=== PATIENT | female | born 1960 | race Caucasian/White ===

== ENCOUNTER 2018-06-23 12:39 | Outpatient (CLI) | payer BC, SELFPAY | END 2018-06-23 12:59 | PROVIDERS: PCP Family Medicine; Visit Provider Internal Medicine Endocrinology, Diabetes & Metabolism | DX: E03.8 Other specified hypothyroidism (principal) | CPT/HCPCS: 36415; 84443 ==

== ENCOUNTER 2018-09-30 13:54 | Outpatient (CLI) | payer BC, SELFPAY ==
[2018-09-30 15:14] LABS: TSH 0.52 uIU/mL (0.358-3.74)
== END 2018-09-30 14:14 ==
PROVIDERS: PCP Family Medicine; Visit Provider Internal Medicine Endocrinology, Diabetes & Metabolism
DX: E03.8 Other specified hypothyroidism (principal)
CPT/HCPCS: 36415; 84443

== ENCOUNTER 2018-10-21 14:25 | Outpatient (CLI) | payer BC, SELFPAY ==
[2018-10-21 15:32] LABS: Calculated LDL 149; Cholesterol 263 mg/dL (50-200); HDL Cholesterol 96 mg/dL (40-60); Triglyceride 90 mg/dL (30-150)
[2018-10-21 16:17] LABS: Hemoglobin A1C 5.4 % (4.5-6.2)
== END 2018-10-21 14:45 ==
PROVIDERS: PCP Family Medicine; Visit Provider Obstetrics & Gynecology Gynecology
DX: Z00.00 Encounter for general adult medical examination without abnormal findings (principal); Z13.220 Encounter for screening for lipoid disorders; Z13.1 Encounter for screening for diabetes mellitus
CPT/HCPCS: 36415; 80061; 83721; 83036

== ENCOUNTER 2018-10-21 14:37 | Outpatient (REF) | payer BC, SELFPAY ==
--- NOTE | 2018-10-21 13:20 | PAPFT_PTH ---
PATIENT: Nicolasa Smiley LOC: [facility] U#:[id number] AGE/SX: 57/F ROOM: RE10/21/[address]: Angeles Gentile : 1960 BED: DIS: 10/21/2018 SPEC #: [id number] RECD: 10/21/18 17:47 STATUS: ANIBAL PANIAGUA #: [id number] NICOLE: 10/21/18 13:[address]: Angeles Gentile DEPT: [facility] Cytology RECD BY: Regine Kelly ENTERED: 10/21/18 17:48 SP TYPE: PAPFT TEJ DR: Adama Marsh Tissues: 1 - CX/ENDOCX FOR PAP SMEARS Procedures: PAP THIN PREP/UVM Screening HPV DNA PROBE Comments: [id number]
== END 2018-10-21 14:57 ==
LOC: LBN 14:37
PROVIDERS: PCP Family Medicine; Visit Provider Obstetrics & Gynecology Gynecology
DX: Z12.4 Encounter for screening for malignant neoplasm of cervix (principal); Z11.51 Encounter for screening for human papillomavirus (HPV)
CPT/HCPCS: 88142; 87624

== ENCOUNTER 2018-10-30 00:49 | Outpatient (CLI) | payer BC, SELFPAY ==
--- NOTE | 2018-10-30 12:00 | DI.MAMMO_ITS ---
SYMPTOM/DIAGNOSIS: SCREENING, Z12.31, ENCOUNTER FOR GENERAL ADULT MEDICAL EXAM, Z00.00 MAMMOGRAMS: Mammograms were interpreted according to the usual protocol including computer analysis with CAD system, tomosynthesis and C view imaging. The breasts are heterogeneously dense. No dominant mass or clumped microcalcification is identified in either breast. The current examination is compared with previous examinations including 10/2017 and there has been no gross interval change in appearance in comparison with the previous studies. CONCLUSION: No specific evidence of malignancy at this time. Routine screening examinations are suggested at yearly intervals due to the family history of breast carcinoma. Category 1. Breast density, Category C. MQSA ASSESSMENT OF FINDINGS: Negative. Category 1. Patient will receive a letter notifying them of these results. Bi-RADS category C. The breasts are heterogeneously dense, which may obscure small masses.
== END 2018-10-30 01:09 ==
PROVIDERS: PCP Family Medicine; Visit Provider Obstetrics & Gynecology Gynecology
DX: Z00.00 Encounter for general adult medical examination without abnormal findings (principal); Z12.31 Encounter for screening mammogram for malignant neoplasm of breast; Z80.3 Family history of malignant neoplasm of breast
CPT/HCPCS: 77063; 77067

== ENCOUNTER 2019-09-14 13:15 | Outpatient (REF) | payer BC, SELFPAY ==
[2019-09-14 16:10] LABS: HCT 40.8 % (36.0-46.0); Mean Corp. HGB Concentration 34.3 g/dL (32.0-36.0); Mean Corpuscular Hemoglobin 30.4 pg (27.0-33.0); Mean Corpuscular Volume 88.5 fL (80-95); Mean Platelet Volume 10.6 fL (8.0-11.0); Platelet Count 204 x1000/uL (130-400); RBC 4.61 m/cumm (4.00-5.20); RBC Distribution Width 12.5 % (11.7-14.6); White Blood Cell Count 5.45 k/cumm (4.4-10.8)
[2019-09-14 16:31] LABS: ALT 35 U/L (14-59); AST 26 U/L (15-37); Albumin 4.1 g/dL (3.4-5.0); Alkaline Phosphatase 82 U/L (46-116); BUN 13 mg/dL (7-18); Bilirubin, Total 0.5 mg/dL (0.2-1.0); CREATININE 0.76 mg/dL (0.55-1.02); Calcium 9.1 mg/dL (8.5-10.1); Calculated LDL 83 mg/dL (<100); Chloride 103 mmol/L (98-107); Cholesterol 184 mg/dL (<200); Glucose 87 mg/dL (74-106); HDL Cholesterol 85 mg/dL (40-60); Potassium 4.2 mmol/L (3.5-5.1); Sodium 141 mmol/L (136-145); TSH (W/Ref FT4) 0.27 uIU/mL (0.36-3.74); Triglyceride 80 mg/dL (<150)
[2019-09-14 16:44] LABS: Vitamin D 25 Total 59.5 ng/ml (30-100)
[2019-09-14 17:08] LABS: FREE T4 1.17 ng/dL (0.76-1.46)
[2019-09-15 12:50] LABS: Hepatitis C Ab w Rflx HCV PCR Negative (Negative)
== END 2019-09-14 13:35 ==
LOC: NCHCN 13:15
PROVIDERS: PCP Family Medicine; Visit Provider Family Medicine
DX: Z00.00 Encounter for general adult medical examination without abnormal findings (principal); E03.9 Hypothyroidism, unspecified; E78.5 Hyperlipidemia, unspecified; E55.9 Vitamin D deficiency, unspecified; L20.9 Atopic dermatitis, unspecified; Z11.59 Encounter for screening for other viral diseases
CPT/HCPCS: 80053; 80061; 82306; 85027; 86803; 84439; 84443

== ENCOUNTER 2019-11-09 00:17 | Outpatient (CLI) | payer BC, SELFPAY ==
--- NOTE | 2019-11-09 15:00 | DI.MAMMO_ITS ---
EXAM: MG MAMMO SCREENING CLINICAL HISTORY: screening. TECHNIQUE: Bilateral full field digital CC and MLO mammographic images were obtained with 3D tomosyn thesis and utilizing computer aided detection (CAD). COMPARISON: 2010 through 2018 FINDINGS: Masses/Architectural Distortion: None seen. Microcalcifications: No suspicious pleomorphic-type are seen. Skin Thickening/Nipple Retraction: None. IMPRESSION: 1. No significant interval change with no specific features of malignancy noted. 2. Unless there is more urgent need, annual screening mammography is recommended, as per [place] [employer] guidelines. BI-RADS Category 1: Breast Density Category D: Breast Density Category D: The mammogram demonstrates the patient's breast tissue is dense. Dense suyapa ast tissue is very common and is not abnormal but dense breast tissue can make it harder to find canc er on a mammogram. Also, dense breast tissue may increase their breast cancer risk. This information about the result of the mammogram report was provided to the patient to raise their awareness. Use th is report when you speak with the patient about their risks for breast cancer, which includes their f amily history. At that time, you may recommend for more screening tests (Ultrasound or MRI) as they m ight be useful based on their risk. A negative radiographic report should not delay biopsy if a dominant or clinically suspicious mass is present. Up to ten percent of cancers are not identified on mammography. A negative report may reinforce clinical impression. Adenosis and dense breasts may obscure an underlying neoplasm. False positive reports average 6 to 10%.
== END 2019-11-09 00:37 ==
PROVIDERS: PCP Family Medicine; Visit Provider Nurse Practitioner Women's Health
DX: Z12.31 Encounter for screening mammogram for malignant neoplasm of breast (principal)
CPT/HCPCS: 77063; 77067

== ENCOUNTER 2020-02-25 04:36 | Outpatient (CLI) | payer BC, SELFPAY ==
--- NOTE | 2020-03-11 13:35 | W.ZIOMONITOR ---
Date of service: 03/11/20 Time of Service: 13:35 14 Day Back Tender Insulation Board Referring Provider:: ruel Indications:: palps Note: This is a 2-week monitor ordered for indication of palpitations. ?The patient was in normal sinus rhythm for the majority of the recording with an average heart rate of 79 bpm. ?The patient had one episode of NSVT which lasted 7 beats. She had rare PVCs. ?There were 9 episodes of supraventricular tachycardia with the longest lasting 11 beats. There were rare PACs. ?There were no episodes of atrial fibrillation, no pauses greater than 3 seconds and no evidence of high degree heart block. ?Patient triggered events were associated with sinus rhythm and occasional isolated PVC.
--- NOTE | 2020-03-29 09:25 | W.ZIOMONITOR ---
Date of service: 03/29/20 Time of Service: 09:25 14 Day [employer] Application Developer Referring Provider:: Alexandre Denton Indications:: Palpitations Note: This is a 14-day monitor ordered for symptoms of palpitations Predominant rhythm was sinus with an average heart rate of 79. Minimum heart rate was 48, maximum 151 There were rare atrial premature beats and atrial pairs. There were 9 atrial runs the longest of which was 11 beats in length.. There were occasional ventricular ectopic beats. There was no ventricular tachycardia. The tracing labeled ventricular tachycardia with supraventricular with aberrancy There was no atrial fibrillation, no pauses greater than 3 seconds, no high-grade AV block Multiple patient symptoms were reported, corresponding to sinus rhythm, sinus tachycardia and isolated PVCs
== END 2020-02-25 04:56 ==
PROVIDERS: PCP Family Medicine; Visit Provider Family Medicine
DX: R00.2 Palpitations (principal); I47.1 Supraventricular tachycardia
CPT/HCPCS: 0296T

== ENCOUNTER 2020-09-22 20:11 | Outpatient (REF) | payer BC, SELFPAY | END 2020-09-22 20:12 | disposition home or self-care (01) | LOC: NCHCN 20:11 | PROVIDERS: PCP Family Medicine; Visit Provider Physician Assistant Medical | DX: J02.9 Acute pharyngitis, unspecified (principal) | CPT/HCPCS: 87070 ==

== ENCOUNTER 2020-09-27 14:39 | Outpatient (REF) | payer BC, SELFPAY ==
[2020-09-27 10:10] LABS: TSH (W/Ref FT4) 2.79 uIU/mL (0.36-3.74); Vitamin B12 404 pg/mL (193-986)
== END 2020-09-27 14:40 | disposition home or self-care (01) ==
LOC: NCHCN 14:39
PROVIDERS: PCP Family Medicine; Visit Provider Family Medicine
DX: R41.3 Other amnesia (principal); E03.9 Hypothyroidism, unspecified
CPT/HCPCS: 82607; 84443

== ENCOUNTER 2020-11-30 02:45 | Outpatient (CLI) | payer BC, SELFPAY ==
--- NOTE | 2020-11-30 07:45 | DI.MAMMO_ITS ---
Exam(s) MAMMO SCREENING EXAM: MAMMO SCREENING CLINICAL HISTORY: screening,Z12.39. TECHNIQUE: Bilateral full field digital CC and MLO mammographic images were obtained with 3D tomosyn thesis and utilizing computer aided detection (CAD). COMPARISON: Prior mammograms dating back to 2010, the most recent being November 2019. Patient's mother was diagnosed with breast cancer. FINDINGS: The fibroglandular tissue pattern is again noted be quite dense, this decreasing the sensitivity of t he mammogram for finding hidden underlying lesions. There are no CAD designations There are no new obvious spiculated masses nor malignant appearing microcalcification groups. There is no significant architectural distortion nor skin thickening-retraction. IMPRESSION: Dense bilateral fibroglandular tissue. No obvious radiographic evidence of malignancy. Given the density of this patient's fibroglandular tissue and significant family history (mother with breast cancer) I recommend screening bilateral breast ultrasound examination BI-RADS Category 2 - Benign Findings Breast Density - Category D - Extremely dense Breast density Category C or D implies that the patient has dense breast tissue. Dense breast tissue can make it harder to find cancer on a mammogram. Dense breast tissue is also associated with an incr eased risk of breast cancer. This information about the result of the mammogram report was provided to the patient to raise their awareness. Use this report when you speak with the patient about their risks for breast cancer, which includes their family history. At that time, you may recommend additional screening tests (Ultrasoun d or MRI) as these tests may add significant information. A negative radiographic report should not delay biopsy if a dominant or clinically suspicious mass is present. Up to ten percent of cancers are not identified on mammography. A negative report may reinforce clinical impression. Adenosis and dense breasts may obscure an underlying neoplasm. False positive reports average 6 to 10%. Patient will receive a letter notifying them of these results.
== END 2020-11-30 03:05 ==
PROVIDERS: PCP Family Medicine; Visit Provider Nurse Practitioner Women's Health
DX: Z12.31 Encounter for screening mammogram for malignant neoplasm of breast (principal); R92.8 Other abnormal and inconclusive findings on diagnostic imaging of breast
CPT/HCPCS: 77063; 77067

== ENCOUNTER 2021-01-23 00:40 | Outpatient (CLI) | payer BC, SELFPAY ==
--- NOTE | 2021-01-23 | DI.MRI_ITS ---
Exam(s) MR BRAIN WO/W EXAM: MR BRAIN WO/W CLINICAL HISTORY: WORSENING HEADACHES,R51.9,OCCIPITAL,ASSESS FOR MASS TECHNIQUE: Multiplanar multisequence MRI of the brain was performed. Both noninfused and contrast i nfused sequences were performed. IV Contrast injected was cc Dotarem. COMPARISON: No exams were available for comparison FINDINGS: CEREBRAL PARENCHYMA: No evidence of intracranial hemorrhage, mass effect nor shift of midline structu re. No extraaxial fluid collections. Ventricles are not enlarged nor shifted. There is no significant focal signal abnormality in the cerebellar hemispheres nor within the sofia, m idbrain, and thalami. There is no abnormal signal abnormality in the periventricular white matter. There are no ring enhancing lesions in the brain. There is no abnormal meningeal enhancement. No ev idence of venous sinus thrombosis. There is no evidence of cerebellar tonsillar ectopia. PITUITARY GLAND: No mass nor parasellar abnormality. No obvious abnormality in the cavernous sinuses. FLOW VOIDS: The expected flow void are noted. No evidence of obvious aneurysm nor obvious vascular ma lformation. There is no evidence of venous sinus thrombosis PARANASAL SINUSES: The visualized paranasal sinuses appear unremarkable. ORBITS: No obvious abnormal findings. IMPRESSION: 1. No significant intracranial findings on this MRI scan of the brain. 2. No abnormal enhancing intracranial finding. 3. No evidence of obvious venous sinus thrombosis. DATA REPOSITORY:
[2021-01-23 08:40] LABS: CREATININE 0.8 mg/dL (0.55-1.02)
[2021-01-23] MEDS: Normal Saline Flush 10 ML SYR IVP (08:42)
[2021-01-23] MEDS: Gadoterate meglumine 20 ML VIAL 12 ML IVP (08:43)
== END 2021-01-23 01:00 ==
PROVIDERS: PCP Family Medicine; Visit Provider Dentist General Practice
DX: R51.9 Headache, unspecified (principal); Z01.818 Encounter for other preprocedural examination; G43.101 Migraine with aura, not intractable, with status migrainosus
CPT/HCPCS: 70553; 82565

== ENCOUNTER 2021-10-11 08:12 | Outpatient (REF) | payer BC, SELFPAY ==
[2021-10-11 16:21] LABS: Calculated LDL 95 mg/dL (<100); Cholesterol 207 mg/dL (<200); Glucose 96 mg/dL (74-106); HDL Cholesterol 95 mg/dL (40-60); TSH (W/Ref FT4) 2.32 uIU/mL (0.36-3.74); Triglyceride 87 mg/dL (<150)
== END 2021-10-11 08:13 | disposition home or self-care (01) ==
LOC: NCHCN 08:12
PROVIDERS: PCP Family Medicine; Visit Provider Family Medicine
DX: E78.5 Hyperlipidemia, unspecified (principal); I65.29 Occlusion and stenosis of unspecified carotid artery; E03.9 Hypothyroidism, unspecified; Z00.00 Encounter for general adult medical examination without abnormal findings; Z13.1 Encounter for screening for diabetes mellitus
CPT/HCPCS: 80061; 82947; 84443

== ENCOUNTER 2021-12-19 12:45 | Outpatient (REF) | payer BC, SELFPAY ==
--- NOTE | 2021-12-19 11:20 | PAPFT_PTH ---
PATIENT: Nicolasa Smiley LOC: [facility] U#:[id number] AGE/SX: 61/F ROOM: RE12/19/[address]: Stephanie Higuera NP : 1960 BED: DIS: 12/19/2021 SPEC #: [id number] RECD: 12/19/21 14:43 STATUS: ANIBAL REQ #: [id number] NICOLE: 12/19/21 11:[address]: Stephanie Higuera NP DEPT: [facility] Cytology RECD BY: Pinky Almazan ENTERED: 12/19/21 14:44 SP TYPE: PAPFT OTHR DR: Alexandre Denton Tissues: 1 - CX/ENDOCX FOR PAP SMEARS Procedures: PAP THIN PREP/UVM Screening HPV DNA PROBE Comments: [id number]
== END 2021-12-19 12:46 | disposition home or self-care (01) ==
LOC: LBN 12:45
PROVIDERS: PCP Family Medicine; Visit Provider Nurse Practitioner Women's Health
DX: Z12.4 Encounter for screening for malignant neoplasm of cervix (principal); Z11.51 Encounter for screening for human papillomavirus (HPV)
CPT/HCPCS: 88142; 87624

== ENCOUNTER → 2022-01-01 02:43 | Outpatient (CLI) | payer BC, SELFPAY ==
--- NOTE | 2022-01-01 08:45 | DI.MAMMO_ITS ---
Exam(s) MAMMO SCREENING EXAM: MAMMO SCREENING CLINICAL HISTORY: screening TECHNIQUE: Bilateral full field digital CC and MLO mammographic images were obtained with 3D tomosyn thesis and utilizing computer aided detection (CAD). COMPARISON: Available for comparison. FINDINGS: Masses/Architectural Distortion: None seen. Microcalcifications: No suspicious pleomorphic-type are seen. Skin Thickening/Nipple Retraction: None. IMPRESSION: 1. No significant interval change with no specific features of malignancy noted. 2. Unless there is more urgent need, screening mammography is recommended, as per [place] [employer] guidelines. BI-RADS Category 1 - Negative Breast Density - Category D - Extremely dense Breast density category C or D implies that the patient has dense breast tissue. Dense breast tissue is very common and is not abnormal but dense breast tissue can make it harder to find cancer on a ma mmogram. Also, dense breast tissue may increase their breast cancer risk. This information about the result of the mammogram report was provided to the patient to raise their awareness. Use this report when you speak with the patient about their risks for breast cancer, which includes their family hist ory. At that time, you may recommend for more screening tests (Ultrasound or MRI) as they might be us eful based on their risk. A negative radiographic report should not delay biopsy if a dominant or clinically suspicious mass is present. Up to ten percent of cancers are not identified on mammography. A negative report may reinforce clinical impression. Adenosis and dense breasts may obscure an underlying neoplasm. False positive reports average 6 to 10%. Patient will receive a letter notifying them of these results.
== END ==
PROVIDERS: PCP Family Medicine; Visit Provider Nurse Practitioner Women's Health
DX: Z12.31 Encounter for screening mammogram for malignant neoplasm of breast (principal)
CPT/HCPCS: 77063; 77067

== ENCOUNTER 2022-03-07 17:33 | Outpatient (REF) | payer BC, SELFPAY ==
[2022-03-12 14:52] LABS: Helicobacter pylori Ag, Feces Negative (Negative)
== END 2022-03-07 17:34 | disposition home or self-care (01) ==
LOC: NCHCN 17:33
PROVIDERS: PCP Family Medicine; Visit Provider Family Medicine
DX: K30 Functional dyspepsia (principal)
CPT/HCPCS: 87338

== ENCOUNTER 2022-12-03 12:02 | Outpatient (REF) | payer BC, SELFPAY ==
[2022-12-03 15:45] LABS: TSH (W/Ref FT4) 2.25 uIU/mL (0.36-3.74)
[2022-12-03 16:55] LABS: Hemoglobin A1C 5.4 % (<5.7)
[2022-12-03 17:14] LABS: Vitamin D 25 Total 55.1 ng/mL (30-100)
== END 2022-12-03 12:03 | disposition home or self-care (01) ==
LOC: NCHCN 12:02
PROVIDERS: PCP Family Medicine; Visit Provider Family Medicine
DX: Z00.00 Encounter for general adult medical examination without abnormal findings (principal); E03.9 Hypothyroidism, unspecified; E55.9 Vitamin D deficiency, unspecified; Z13.1 Encounter for screening for diabetes mellitus
CPT/HCPCS: 82306; 83036; 84443

== ENCOUNTER → 2023-01-28 01:36 | Outpatient (CLI) | payer BC, SELFPAY ==
--- NOTE | 2023-01-28 08:35 | DI.MAMMO_ITS ---
Exam(s) MAMMO SCREENING EXAM: MAMMO SCREENING CLINICAL HISTORY: screening,z12.39. TECHNIQUE: Bilateral full field digital CC and MLO mammographic images were obtained with 3D tomosyn thesis and utilizing computer aided detection (CAD). COMPARISON: Prior mammograms were reviewed. FINDINGS: Fibroglandular tissue pattern is again noted be dense, this somewhat decreasing the sensitivity of th e mammogram for finding hidden underlying lesions. There are no new spiculated masses nor malignant appearing microcalcification groups. There is no significant architectural distortion nor skin thickening-retraction. IMPRESSION: No radiographic evidence of malignancy. BI-RADS Category 1 - Negative Breast Density - Category C - Heterogeneously dense Breast density Category C or D implies that the patient has dense breast tissue. Dense breast tissue can make it harder to find cancer on a mammogram. Dense breast tissue is also associated with an incr eased risk of breast cancer. This information about the result of the mammogram report was provided to the patient to raise their awareness. Use this report when you speak with the patient about their risks for breast cancer, which includes their family history. At that time, you may recommend additional screening tests (Ultrasoun d or MRI) as these tests may add significant information. A negative radiographic report should not delay biopsy if a dominant or clinically suspicious mass is present. Up to ten percent of cancers are not identified on mammography. A negative report may reinforce clinical impression. Adenosis and dense breasts may obscure an underlying neoplasm. False positive reports average 6 to 10%. Patient will receive a letter notifying them of these results.
== END ==
PROVIDERS: PCP Family Medicine; Visit Provider Nurse Practitioner Women's Health
DX: Z12.39 Encounter for other screening for malignant neoplasm of breast (principal)
CPT/HCPCS: 77063; 77067

== ENCOUNTER → 2023-05-09 02:18 | Outpatient (CLI) | payer BC, SELFPAY ==
--- NOTE | 2023-05-09 10:35 | DI.RAD_ITS ---
Exam(s) XR FOOT LT COMPLETE EXAM: XR FOOT LT COMPLETE CLINICAL HISTORY: LT FOOT PAIN, M79.672. TECHNIQUE: 2D digital imaging was performed of the left foot. Three images were obtained. AP, obli que and lateral views were obtained. COMPARISON: No exams were available for comparison FINDINGS: BONES: No acute fracture is present. No bony destructive lesion is seen. There is an enthesophyte at the posterior calcaneus. JOINTS: No dislocation present. The joint spaces are well maintained. SOFT TISSUE: Normal. IMPRESSION: No acute abnormality. DATA REPOSITORY: RADIATION DOSE DELIVERED:
== END ==
PROVIDERS: PCP Family Medicine; Visit Provider Family Medicine
DX: M79.672 Pain in left foot (principal)
CPT/HCPCS: 73630

== ENCOUNTER 2023-12-12 12:16 | Outpatient (CLI) | payer BC, SELFPAY ==
[2023-12-12 14:07] LABS: HCT 43.4 % (36.0-46.0); HGB 14.7 g/dL (11.2-15.7); MCH 30.5 pg (27.0-33.0); MCHC 33.9 % (32.0-36.0); MCV 90 fL (80-95); MPV 9.6 fL (8.0-11.0); Platelet Count 167 10^3/uL (130-400); RBC 4.82 10^6/uL (3.93-5.22); RDW 12.5 % (11.7-14.6); RDW-SD 41.1 fL; WBC 4.96 10^3/uL (4.4-10.8)
[2023-12-12 14:40] LABS: BUN 13 mg/dL (7-18); CREATININE 0.8 mg/dL (0.55-1.02); Calcium 9.5 mg/dL (8.5-10.1); Chloride 105 mmol/L (98-107); Estimated GFR 81.72 (mL/min/1.73m2); Glucose 94 mg/dL (74-106); Potassium 3.7 mmol/L (3.5-5.1); Sodium 142 mmol/L (136-145); TSH (W/Ref FT4) 1.91 uIU/mL (0.36-3.74); Vitamin D 25 Total 56.7 ng/mL (30-100)
[2023-12-12 16:37] LABS: FREE T4 0.92 ng/dL (0.76-1.46)
[2023-12-12 16:41] LABS: Lab Add On Test DONE
[2023-12-13 18:14] LABS: T3,Free 3.8 pg/mL (2.8-5.3)
== END 2023-12-12 12:17 | disposition home or self-care (01) ==
PROVIDERS: PCP Student in an Organized Health Care Education/Training Program; Visit Provider Student in an Organized Health Care Education/Training Program
DX: R68.89 Other general symptoms and signs (principal); R53.83 Other fatigue; G43.909 Migraine, unspecified, not intractable, without status migrainosus; Z87.440 Personal history of urinary (tract) infections; K30 Functional dyspepsia; Z91.89 Other specified personal risk factors, not elsewhere classified; Z13.0 Encounter for screening for diseases of the blood and blood-forming organs and certain disorders involving the immune mechanism; J45.909 Unspecified asthma, uncomplicated; K90.9 Intestinal malabsorption, unspecified; E55.9 Vitamin D deficiency, unspecified; Z78.0 Asymptomatic menopausal state; I10 Essential (primary) hypertension; E04.9 Nontoxic goiter, unspecified; E04.2 Nontoxic multinodular goiter; I83.93 Asymptomatic varicose veins of bilateral lower extremities; I87.2 Venous insufficiency (chronic) (peripheral); R22.1 Localized swelling, mass and lump, neck; E06.9 Thyroiditis, unspecified
CPT/HCPCS: 36415; 80048; 82306; 85027; 84439; 84443; 84481; 87086

== ENCOUNTER 2024-01-07 11:34 | Outpatient (REF) | payer BC, SELFPAY ==
--- NOTE | 2024-01-07 11:15 | PAPFT_PTH ---
PATIENT: Nicolasa Smiley LOC: [facility] U#:[id number] AGE/SX: 63/F ROOM: RE01/07/[address]: Stephanie Higuera NP : 1960 BED: DIS: 01/07/2024 SPEC #: [id number] RECD: 01/07/24 12:47 STATUS: ANIBAL RESally #: [id number] NICOLE: 01/07/24 11:[address]: Stephanie Higeura NP DEPT: [facility] Cytology RECD BY: Regine Kelly ENTERED: 01/07/24 12:47 SP TYPE: PAPFT OTHR DR: Wendie Schmidt, DO Tissues: 1 - CX/ENDOCX FOR PAP SMEARS Procedures: PAP THIN PREP/UVM Screening HPV DNA PROBE Comments: [id number] (HPV 16 & 18/45)
== END 2024-01-07 11:35 | disposition home or self-care (01) ==
LOC: LBN 11:34
PROVIDERS: PCP Student in an Organized Health Care Education/Training Program; Visit Provider Nurse Practitioner Women's Health
DX: Z01.419 Encounter for gynecological examination (general) (routine) without abnormal findings (principal); N81.10 Cystocele, unspecified; Z12.4 Encounter for screening for malignant neoplasm of cervix
CPT/HCPCS: 88142; 87624

== ENCOUNTER 2024-01-30 02:27 | Outpatient (CLI) | payer BC, SELFPAY ==
--- NOTE | 2024-01-30 06:15 | DI.MAMMO_ITS ---
Exam(s) MAMMO SCREENING EXAM: MAMMO SCREENING CLINICAL HISTORY: screening,z12.39 TECHNIQUE: Bilateral full field digital CC and MLO mammographic images were obtained with 3D tomosyn thesis and utilizing computer aided detection (CAD). COMPARISON: Available for comparison. FINDINGS: Masses/Architectural Distortion: None seen. Microcalcifications: No suspicious pleomorphic-type are seen. Skin Thickening/Nipple Retraction: None. IMPRESSION: 1. No significant interval change with no specific features of malignancy noted. 2. Unless there is more urgent need, screening mammography is recommended, as per [place] [employer] guidelines. BI-RADS Category 1 - Negative Breast Density - Category D - Extremely dense Breast density category C or D implies that the patient has dense breast tissue. Dense breast tissue is very common and is not abnormal but dense breast tissue can make it harder to find cancer on a ma mmogram. Also, dense breast tissue may increase their breast cancer risk. This information about the result of the mammogram report was provided to the patient to raise their awareness. Use this report when you speak with the patient about their risks for breast cancer, which includes their family hist ory. At that time, you may recommend for more screening tests (Ultrasound or MRI) as they might be us eful based on their risk. A negative radiographic report should not delay biopsy if a dominant or clinically suspicious mass is present. Up to ten percent of cancers are not identified on mammography. A negative report may reinforce clinical impression. Adenosis and dense breasts may obscure an underlying neoplasm. False positive reports average 6 to 10%. Patient will receive a letter notifying them of these results.
== END 2024-01-30 02:47 ==
LOC: DI 02:28
PROVIDERS: PCP Student in an Organized Health Care Education/Training Program; Visit Provider Student in an Organized Health Care Education/Training Program
DX: Z12.31 Encounter for screening mammogram for malignant neoplasm of breast (principal)
CPT/HCPCS: 77063; 77067

== ENCOUNTER 2024-03-09 11:13 | Day surgery (SDC) | payer BC, SELFPAY ==
--- NOTE | 2024-03-06 13:25 | BOWEL_PTH ---
PATIENT: Nicolasa Smiley LOC: [facility] U#:[id number] AGE/SX: 63/F ROOM: RE03/09/[address]: J Carlos Hanson MD : 1960 BED: DIS: 03/09/2024 SPEC #: [id number] RECD: 03/09/24 15:35 STATUS: ANIBAL RE #: [id number] NICOLE: 03/06/24 13:[address]: J Carlos Hanson DEPT: Surgical Specimen RECD BY: Regine Kelly ENTERED: 03/09/24 15:36 SP TYPE: Bowel OTHR DR: Wendie Schmidt DO Tissues: 1 - BIOPSY BOWEL Procedures: GROSS AND MICRO LEVEL 4 Comments: [id number]
--- NOTE | 2024-03-08 15:28 | W.PM.DSUDISC ---
Date of service: 03/09/24 Time of Service: 13:42 Discharge Plan Disposition Patient Disposition: Home Condition: Good Discharge Details Reason For Visit: screening colonoscopy Attending Provider: J Carlos Hanson Primary Care Provider: Wendie Schmidt Home Meds and New Rx's Prescriptions: Continued Dupixent Pen 300 mg/2 mL pen injector 300 mg subcut Q2W Ubrelvy 100 mg tablet 100 mg PO ONCE Rx Instructions: as a single dose; may repeat once in >=2 hours after first dose if needed lorazepam 0.5 mg tablet 1 mg PO PRN Qty: 6 1RF Rx Instructions: take 1 tab prior to flying and 2nd in-flight (March 2024 flight planned) levothyroxine 25 mcg tablet 50 mcg PO DAILY Qty: 90 3RF sertraline 25 mg tablet 25 mg PO DAILY Qty: 90 3RF simvastatin 20 mg tablet 20 mg PO DAILY Qty: 90 3RF coQ10 (ubiquinol) 100 mg capsule 100 mg PO DAILY magnesium oxide-Mg AA chelate 300 mg capsule 1 cap PO DAILY Discontinued bisacodyl [Dulcolax (bisacodyl)] 5 mg tablet,delayed release (DR/EC) 5 mg PO ONCE Qty: 4 0RF Rx Instructions: Take per colonoscopy instructions provided by ordering providers office polyethylene glycol 3350 17 gram/dose powder 17 g PO ONCE Qty: 238 0RF Rx Instructions: Take per colonoscopy instructions provided by ordering providers office Discharge Instructions Instructions: Colon polyps, Diverticulosis Additional Instructions: Nicolasa, was pleasure meeting you today, and I hope you are comfortable during the procedure. Everything went very smoothly. I did find and remove 1 small portion of tissue, which may be a polyp. However, to be completely honest, this is extremely small, and it may in fact just be normal tissue. Regardless, I will send it off for testing as polyps, and different varieties, and the type of polyp can influence the timing of the patient's next colonoscopy. Incidentally, he also have a little bit of diverticulosis. Diverticula are little weak spots in the muscular part of the colon wall. This causes the inside lining to pooch outwards creating little pockets or pouches. On some occasions, these can get infected or inflamed. If that happens, patients typically experience quite a bit of pain, usually on the left side of their abdomen or down across the middle. We refer to these flareups as episodes of diverticulitis. Hopefully, years will never bother you. I did attach a little bit of information here about colon and rectal polyps, as well as diverticulosis. The results from the pathology report usually take a week or 2, but once the office has those, we will be in touch with recommendations for your next colonoscopy. If you need anything or have any questions in the meantime, please do not hesitate to ask. 1. If tolerated, consume a soft, low fiber diet for 1-2 days. 2[address] Do not drive, drink alcohol, operate machinery, make critical decisions, or do activities that require coordination or balance for 24 hours. 3. Because air was put into your colon during the procedure, expelling air from your rectum (passing gas or farting) is normal. 4. You may not have a bowel movement for 1-3 days because of the colonoscopy prep. This is normal. 5. Go directly to the emergency room if you notice any of the following: Develop chills (warm to touch), or if you have a thermometer and your temperature is above 101 Difficulty breathing or difficultly swallowing Persistent vomiting Severe abdominal pain, other than gas cramps Severe chest pain Black, tarry stools Any bleeding ? exceeding one tablespoon 6. Call your physician if the site where your intravenous was started becomes red, swollen, painful, and warm to touch. 7. Your physician has reviewed your pre-procedure medications. Please continue to take those medications as previously ordered. You will be given specific information/education regarding any changes to your medications before leaving. Activity:: Activity as Tolerated Diet:: As Tolerated Discharge Orders Discharge Orders: Discharge Order (Routine); Ordered 03/08/24 Ordered By: J Carlos Hanson DS: Diagnosis Discharge Diagnosis (1) Encounter for screening colonoscopy: Status: Acute Asessment and Plan: Follow-up on polypectomy results
--- NOTE | 2024-03-08 15:30 | COLE_ITS ---
Date of service: 03/09/24 Time of Service: 13:44 Colonoscopy Report Date of procedure: 03/09/24 Pre-op diagnosis general: screening colonoscopy Post-op diagnosis procedure note: other (Colon polyp, diverticulosis) Procedure: colonoscopy with polypectomy Surgeon: J Carlos Hanson Anesthesia Type: General:No Airway Estimated blood loss (mL): 5 Pathology: other (Less than 0.25 cm colon polyp at 25 cm) Complications: None Disposition: same day Indications: Nicolasa is a 63 year old woman who needs a screening colonoscopy Prep: Miralax/Dulcolax Procedure Start Time: :04 Procedure End Time: : Retraction Time: 14 Findings: Less than 0.25 cm colon polyp at 25 cm; sigmoid diverticulosis Procedure Description: After the induction of anesthesia, and with the patient in left lateral decubitus position, I began by performing an external anorectal exam.? Perineum and skin were normal, as was the anal verge.? T there are some perianal skin tags consistent with old hemorrhoids.? Next, I performed a digital rectal exam.? I did not appreciate any abnormal findings.? Next, I advanced a colonoscope into the rectal vault.? I performed retroflexion.? This appeared normal.? Using insufflation, I then advanced the colonoscope beyond the rectal folds and into the sigmoid colon before advancing towards the cecum.? There was some sigmoid diverticulosis.? The scope was noted to be in the cecum by identification of the ileocecal valve and appendiceal orifice.? I then began withdrawing the colonoscope using repeated irrigation as necessary for full evaluation of the colonic mucosa. ?Once the scope was withdrawn to the level of the rectum, great care was taken to examine portions of the rectal folds.? In the upper portion of the rectal vault was a 0.25 cm polyp. This was removed with cold forcep polypectomy with minimal bleeding. Finally, the scope was withdrawn and the patient was brought to the same-day surgery recovery unit as the anesthetic wore off. ?The findings and instructions were shared with the patient prior to discharge. [place] Bowel Prep [place] Bowel Prep Right Colon: 2 Transverse Colon: 3 Total Score: 5
[2024-03-09 11:41] VITALS: BP 116/59; PULSE 79; RESP 18; TEMP 36.2; O2SAT 100
--- NOTE | 2024-03-09 12:06 | W.ANESPRE ---
General Info Date of Service Date Performed: 03/09/24 Height: 5 ft 8 in Weight: 55.9 kg Body Mass Index (BMI): 18.7 Surgical Procedure: Operation Date: 03/09/24 12:35 Proposed Procedure Side Surgeon chica Hanson MD Meds Allergies and Home Medications Allergies Allergy/AdvReac Type Severity Reaction Status Date / Time Latex, Natural Rubber Allergy Other (See Verified 03/09/24 11:39 Comment) No Known Drug Allergies Allergy Other (See Verified 03/09/24 11:39 Comment) Home Medication ?Medication ?Instructions ?Recorded dupilumab 300 mg/2 mL subcutaneous 300 mg subcut Q2W 11/18/23 pen injector (Dupixent) ubrogepant 100 mg tablet (Ubrelvy) 100 mg PO ONCE 11/19/23 levothyroxine 25 mcg tablet 50 mcg (2 x 25 mcg) PO DAILY #90 12/05/23 tabs sertraline 25 mg tablet 25 mg PO DAILY #90 tabs 12/05/23 simvastatin 20 mg tablet 20 mg PO DAILY #90 tabs 12/05/23 lorazepam 0.5 mg tablet 1 mg (2 x 0.5 mg) PO PRN 12/06/23 anticipatory anxiety, w/ long flights #6 tab-caps coQ10 (ubiquinol) 100 mg capsule 100 mg PO DAILY 03/06/24 magnesium oxide-magnesium amino 1 cap PO DAILY 03/06/24 acid chelate 300 mg capsule Current Visit Medications: Current Medications Generic Name Dose Route Start Last Admin Trade Name Freq PRN Reason Stop Dose Admin Ringer's Solution 1,000 mls @ 80 mls/hr 03/09/24 06:00 IV 03/09/24 23:59 INFUSION COLT IV Miscellaneous Supplies 1 each 03/09/24 06:00 Iv Access IV 03/09/24 23:59 DIRECTED COLT Ondansetron HCl 4 mg 03/08/24 15:31 Ondansetron 4 Mg/2 Ml Vial IVP 04/07/24 15:30 Q4H PRN PRN Nausea / Vomiting Sodium Chloride 0 ml 03/09/24 06:00 Normal Saline Flush 10 Ml Syr IV 03/09/24 23:59 PRN PRN Sodium Chloride 0 ml 03/09/24 06:00 Normal Saline 10 Ml Vial IJ 03/09/24 23:59 DIRECTED PRN Sterile Water 0 ml 03/09/24 06:00 Water,Injection,Sterile 10 Ml Vial IJ 03/09/24 23:59 DIRECTED PRN PFSH Active Problems Active Problems: Problem Status Onset Code Encounter for screening colonoscopy Acute Z12.11 Preoperative exam for gynecologic surgery Acute Z01.818 Diffuse thyroid goiter without thyrotoxicosis Acute E04.0 Irineo's thyroiditis Acute E06.3 Discoloration of skin of toe Acute L81.9 Thyroiditis Acute E06.9 Varicose veins of both lower extremities Acute I83.93 Peripheral venous insufficiency Acute I87.2 Multinodular goiter Acute E04.2 Enlarged thyroid Chronic E04.9 Anxiety with flying Acute F40.243 Hx: UTI (urinary tract infection) Acute Z87.440 Pain in both feet Acute M79.671, M79.672 Atopic dermatitis Acute L20.9 Nonulcer dyspepsia Acute K30 Carotid artery stenosis Acute I65.29 Migraine Chronic G43.909 Anxiety disorder Acute F41.9 Vitamin D deficiency Acute E55.9 Cystocele with prolapse Acute N81.4 Postmenopausal status Acute Z78.0 Medical History Medical History Impacted cerumen of right ear Blood on toilet paper Persistent cough Hyperlipidemia Benign lipomatous tumor Family history of breast cancer mother. Chest pain (06/18/16) ED eval. Neg abd CT. RI r/o. Hypothyroidism due to Irineo's thyroiditis Rash and nonspecific skin eruption Onset 12/2013. Seen by [facility] [place] derm - topical and po steroids RX. Responsive to UV light treatment. 2016 Rx with steroid inj at [facility] [place] with improvement in sx. Multinodular goiter (nontoxic) 09/11/16 each lobe ~ [id number]. benign appearing nodules 02/2017 [facility] [place] endocrinology consult recommended target TSH less than 2. No plans for surgery at this time. Lipoma of arm 1.5cm in proximity to medial epicondyle. Tobacco Smoking/Tobacco Use Status: Never Passive smoking exposure: No Second hand exposure: No Alcohol Alcohol Intake: current Alcohol intake frequency: a few times a month Substance Use Substance use: Never Substance use type: does not use Vital Signs and Lab Results Vital Signs Most Recent Vital Signs in EMR: Most Recent Vital Signs Temp Pulse Resp BP Pulse Ox 36.2 C L 79 18 116/59 L 100 03/09/24 11:41 03/09/24 11:41 03/09/24 11:41 03/09/24 11:41 03/09/24 11:41 Lab Results Blood Type / Crossmatch: No Data to Display Complete Blood Count: No Data to Display Complete Metabolic Panel: No Data to Display Liver Function Panel: No Data to Display Coagulation Panel: No Data to Display Cardiac Panel: No Data to Display Arterial Blood Gas: No Data to Display Venous Blood Gas: No Data to Display Pancreas Panel: No Data to Display Thyroid Panel: No Data to Display Infectious Disease: No Data to Display Blood Cultures: No Data to Display Toxicology Panel: No Data to Display Imaging and Studies Imaging and Studies Study information below may be from another EMR and interpreted by another provider. Please see original notes in EMR for more complete details. Stress Test Summary: STRESS TEST PATIENT NAME: KASHIF PACHECO UNIT #: [id number] ADMITTING PROVIDER: ALIX MCNAMARA MD PRIMARY CARE PROVIDER: GABRIELLA STERLING DATE OF SERVICE: 05/08/13 : 1960 Physician: Maximo/Ethan Tech: RUBI Hgt(inches): 68 Wgt(lbs): 130 History: Intermittent sharp chest pain over past couple of months. Chest heaviness with sensation of inability to take a deep breath. Loss of grasp in right hand accompnied by headache and right cheek tingling in early April/attributed to migraine. Family Hx: Father, mother and brother 3 vessal CABG. Mother/CEA. Smoking Hx: Never. Exercise: None recently (5 months). Diabetes: Neg Hypertension: Neg BP(supine): 118/62 Cholesterol: 230 Tri HDL: 66 LDL: 146 Date: 01/16/12 Lipid meds: None. Troponin: Date: Other: None. Meds: None. Protocol: Brenden Max MPH: 4.2 % Grade: 16.0 Target HR 100%: 166 85%: 141 ETT ended at: 10:18 due to Patient request. Target exceeded. Peak HR: 178 METS: 12.9 Physical examination: Lungs: Clear Cor: Reg. ? S3. Resting 12 lead EKG: NSR. 76 BPM. RESULTS Arrhythmias: None detected. Angina: None. HR response: Normal. Max 178BPM @ 108% of target. BP response: Normal. Max SBP 130. ST-T changes: No ischemic ECG changes are elicited. MIBI SPECT images: Functional Capacity: Above average. IMPRESSION: Normal study. Negative for ischemia. Dictated by: ALIX MCNAMARA MD Dictated:: <Electronically signed by ALIX MCNAMARA MD> 07/02/13 0843 Transcribed Date: 05/08/13 Transcribed Time: 841 By: AUDREYJ This is privileged, confidential information, intended only for the provider named. Any use or distribution by any person other than this provider is strictly prohibited. If you receive this report in error, please notify us immediately at [phone] and return the original report to us at the address above. Thank you. Anesthesia Assessment and Plan Anesthesia History Personal History: No History of Anesthesia Complications and PONV Family History: No Family History of Anesthesia Complications Exercise Tolerance Exercise Tolerance: Metabolic Equivalents>4 Pertinent Negatives Pertinent Negatives: No Symptoms of GERD, No Major Pulmonary Symptoms or Complaints and No History of CVA/TIA Cardiac & Pulmonary Exam Cardiac Exam: Normal S1/S2 Heart Sounds Pulmonary Exam: Clear Bilateral Breath Sounds Implantable Cardiac Device Does patient have a Pacemaker or an ICD?: No Airway Exam Known Difficult Airway: No Mallampati Class: 3 Mouth Opening: Normal (> 3cm) Thyromental Distance: Greater than 3 cm Neck Range of Motion: Full ROM Neck Circumference: Normal Teeth Condition: Normal Dentition ASA Classification ASA Score: ASA 2 Emergency Case?: No NPO Status NPO Status: NPO Clears >2 hours, Solids >8 hours Anesthesia Plan Resuscitation Status: Full Code Anesthesia Technique: General Anesthesia Airway Planned: Natural Airway Monitors Used: Standard Monitors
[2024-03-09 12:36] VITALS: BMI 18.7
[2024-03-09] MEDS: Lactated Ringers 500 ML 30 ML IV (13:06)
[2024-03-09 13:34] VITALS: BP 96/49; PULSE 69; RESP 16; TEMP 36.4; O2SAT 100
--- NOTE | 2024-03-09 13:54 | W.ANESPOSTOP ---
Postoperative Evaluation Date, Time and Location Date Performed: 03/09/24 Time Performed: 13:54 Patient Location: Day Surgery Unit Vital Signs Most Recent Imported Vital Signs: Most Recent Vital Signs Temp Pulse Resp BP Pulse Ox 36.4 C L 69 16 96/49 L 100 03/09/24 13:34 03/09/24 13:34 03/09/24 13:34 03/09/24 13:34 03/09/24 13:34 Pain Score Most Recent Pain Score: Most Recent Pain Score Pain Level 0 03/09/24 13:34 Assessment Mental Status: Arousable with meaningful communication Airway and Respiratory Function: Patent airway with normal (patient baseline) respiratory exam Cardiovascular Function: Hemodynamically Stable Hydration Status: Adequately Hydrated Nausea & Vomiting: No Nausea or Vomiting Pain: Pt. Denies Any Pain Peripheral Nerve Block: Patient did not receive a nerve block
[2024-03-09 13:58] VITALS: BP 113/58; PULSE 61; RESP 16; TEMP 36.4; O2SAT 100
== END 2024-03-09 11:14 | disposition home or self-care (01) ==
LOC: SUR 11:13
PROVIDERS: PCP Student in an Organized Health Care Education/Training Program; Visit Provider Surgery
PROC: 0DJD8ZZ Inspection of Lower Intestinal Tract, Via Natural or Artificial Opening Endoscopic (ICD-10-PCS; CPT 45378; principal; 2024-03-09 12:30)
DX: Z12.11 Encounter for screening for malignant neoplasm of colon (principal); K63.5 Polyp of colon; K57.30 Diverticulosis of large intestine without perforation or abscess without bleeding
CPT/HCPCS: 45380; 88305; J2405; J2704

== ENCOUNTER 2024-05-12 07:40 | Outpatient (CLI) | payer BC, SELFPAY ==
--- NOTE | 2024-05-12 07:30 | RT.EKG_ITS ---
APPROVED REPORT Exam: Resting ECG Reason for Exam: pre - op exam Patient Location: O HR:64 bpm ECG Measurements Heart Rate 64 AXIS GA 140 P 69 QRSd 83 QRS 81 QT 412 T 62 QTc 425 Conclusion Sinus rhythm...normal P axis, V-rate 50- 99 Normal Electrocardiogram
== END 2024-05-12 07:41 | disposition home or self-care (01) ==
LOC: DI.KIM 07:41
PROVIDERS: PCP Student in an Organized Health Care Education/Training Program; Visit Provider Nurse Practitioner
DX: Z01.818 Encounter for other preprocedural examination (principal)
CPT/HCPCS: 93010

== ENCOUNTER 2024-05-28 03:13 | Outpatient (CLI) | payer BC, SELFPAY ==
--- NOTE | 2024-05-28 06:30 | DI.DEXA_ITS ---
Exam(s) XR DEXA BONE DENSITY W/WO KEVIN EXAM: XR DEXA BONE DENSITY W/WO KEVIN CLINICAL HISTORY: screening for osteoporosis in postmenopausal state asymptomatic,z78.0 TECHNIQUE: Routine DEXA evaluation of the lumbar spine, hip, or forearm. COMPARISON: No exams were available for comparison FINDINGS: Performed on a Hologic unit. Lateral image: No compression fracture evident. Lumbar Spine total T-score: -1.2 Hip total T-score:-0.8 Independent reading at the level of the femoral neck yields T-score of -1.4 Forearm total T-score: -1.4 IMPRESSION: Bone mineral density measures in the osteopenia range. Fracture risk is moderate. Note: Any spine fracture indicates 5x risk for subsequent spine fracture and 2x risk for subsequent h ip fracture. World Health Organization criteria for BMD interpretation classify patients: Normal...... T- Score at or above -1.0 Osteopenic... T- Score between -1.0 and -2.5 Osteoporosis... T-Score at or below -2.5
--- NOTE | 2024-05-28 08:00 | DI.US_ITS ---
Exam(s) US CAROTID EXAM: US CAROTID CLINICAL HISTORY: follow known carotid artery stenosis,i65.29. TECHNIQUE: Ultrasound carotids performed using grayscale, color-flow, and spectral Doppler imaging. COMPARISON: US US THYROID from 12/12/2023 FINDINGS: CAROTID ARTERIES: Common carotid arteries exhibit no significant plaque nor abnormal velocities. There is mild plaque noted in the left carotid bulb/proximal left ICA, without significant elevation of velocities. VERTEBRAL ARTERIES: Antegrade flow. Measurements: R Bulb: 87.8cm/s PS / 27cm/s ED R CCA: 96.9cm/s PS / 36.1cm/s ED R ECA: 99.1cm/s PS / 14cm/s ED R ICA Prox: 102.3cm/s PS / 33.2cm/s ED R ICA Mid: 90.8cm/s PS / 38.7cm/s ED R ICA Distal: 80.8cm/s PS /37.8cm/s ED R Vert: 46.7cm/s PS / 18.8cm/s ED R SVR: 1.1 R DVR: 0.9 L Bulb: 85cm/s PS / 24.6cm/s ED L CCA: 94.9cm/s PS / 30.7cm/s ED L ECA: 87.1cm/s PS / 14.3cm/s ED L ICA Prox: 87.1cm/s PS / 34.1cm/s ED L ICA Mid: 90.4cm/s PS / 33.5cm/s ED L ICA Distal: 86.8cm/s PS / 39.5cm/s ED L Vert: 38.7cm/s PS / 14.4cm/s ED L SVR: 1 L DVR: 1.1 IMPRESSION: Mild plaque in the left carotid bulb and proximal left ICA. No elevated velocities indicating amount of stenosis is less than 50 percent. Visually estimated amount of stenosis at less than 20 percent. No significant plaque evident on the right side. Antegrade flow is demonstrated in both vertebral arteries. Criteria for Carotid Stenosis: Normal: ICA PSV <125 cm/s no plaque or intimal thickening is visible. <50% stenosis: ICA PSV <125 cm/s and plaque or intimal thickening is visible. 50-69% stenosis: ICA PSV is 125-250 cm/s and plaque is visible. >70% stenosis to near occlusion: ICA PSV >250 cm/s with visible plaque and luminal narrowing. DATA REPOSITORY:
== END 2024-05-28 03:33 ==
LOC: DI 03:13
PROVIDERS: PCP Nurse Practitioner; Visit Provider Nurse Practitioner
DX: Z78.0 Asymptomatic menopausal state (principal); I65.29 Occlusion and stenosis of unspecified carotid artery; Z13.820 Encounter for screening for osteoporosis
CPT/HCPCS: 77080; 93880

== ENCOUNTER 2025-02-01 02:47 | Outpatient (CLI) | payer BC, SELFPAY ==
--- NOTE | 2025-02-01 08:09 | DI.MAMMO_ITS ---
Exam(s) MAMMO SCREENING EXAM: MAMMO SCREENING CLINICAL HISTORY: screening. TECHNIQUE: Bilateral full field digital CC and MLO mammographic images were obtained with 3D tomosynthesis and utilizing computer aided detection (CAD). COMPARISON: Prior mammograms were reviewed. FINDINGS: The fibroglandular tissue pattern is again noted be dense, this somewhat decreasing the sensitivity of the mammogram for finding hidden underlying lesions. No new left breast findings. A few new benign-appearing microcalcifications are noted in the right breast. There are no new spiculated masses nor new malignant appearing microcalcification groups. There is no significant architectural distortion nor skin thickening-retraction. IMPRESSION: Benign findings. No radiographic evidence of malignancy. BI-RADS Category 2 - Benign Findings Breast Density - Category C - The breast are heterogeneously dense, which may obscure small masses. Breast density Category C or D implies that the patient has dense breast tissue. Dense breast tissue can make it harder to find cancer on a mammogram. Dense breast tissue is also associated with an increased risk of breast cancer. This information about the result of the mammogram report was provided to the patient to raise their awareness. Use this report when you speak with the patient about their risks for breast cancer, which includes their family history. At that time, you may recommend additional screening tests (Ultrasound or MRI) as these tests may add significant information. A negative radiographic report should not delay biopsy if a dominant or clinically suspicious mass is present. Up to ten percent of cancers are not identified on mammography. A negative report may reinforce clinical impression. Adenosis and dense breasts may obscure an underlying neoplasm. False positive reports average 6 to 10%. Patient will receive a letter notifying them of these results.
== END 2025-02-01 03:07 ==
PROVIDERS: PCP Nurse Practitioner Family; Visit Provider Nurse Practitioner Women's Health
DX: Z12.31 Encounter for screening mammogram for malignant neoplasm of breast (principal)
CPT/HCPCS: 77063; 77067